=== PATIENT | female | born 1970 | race Caucasian/White ===

== ENCOUNTER → 2016-11-23 | Outpatient (CLI) | payer BC ==
[~2016-11-23] MED LIST: CHOL200010 PO; CYAN100020 PO; FERR1TAB23 PO; INSPMPNVLG; INTE44IN SC; LOW DOSE NALTREXONE PO; MAGN500C PO; THY/30 PO
== END | disposition home or self-care (01) ==
LOC: C.CPL 14:33
PROVIDERS: ATTEND Psychiatry & Neurology Neurology
DX: G35 Multiple sclerosis (principal)

== ENCOUNTER → 2017-02-12 | Outpatient (CLI) | payer BC ==
[~2017-02-12] MED LIST changes: +DOXY100C76 PO; +FING1CAP PO
[2017-02-12 10:53] LABS: ESTIMATED AVERAGE GLUCOSE 128 mg/dl; HA1C FLAG Normal (Normal)
== END | disposition home or self-care (01) ==
LOC: C.LAB1850 08:58
PROVIDERS: ATTEND Family Medicine
DX: E10.9 Type 1 diabetes mellitus without complications (principal); E03.9 Hypothyroidism, unspecified; Z79.4 Long term (current) use of insulin

== ENCOUNTER → 2017-05-10 | Outpatient (CLI) | payer BC ==
[~2017-05-10] MED LIST changes: -DOXY100C76 PO; -FING1CAP PO
--- NOTE | 2017-05-10 11:17 | DIAGNOSTIC IMAGING REPORT ---
TRANS VAG-FEMALE PELVIS HISTORY: Pain. Nausea. N92.0 Menorrhagia Menorrhagia. R/o anatomical etio. E X0D E ULTRA COMPARISON: None. FINDINGS: Uterus: Maximum dimension 9.5 cm. Diffuse heterogeneity of myometrial echogenicity suggesting fibroid involvement. Discrete fibroids, however not seen. Endometrial stripe: 3 mm Right ovary: 1.5 cm with normal vascular flow Left ovary: 2.5 cm maximum dimension with normal vascular flow Miscellaneous:No pelvic free fluid. IMPRESSION: Diffuse heterogeneity of the uterine myometrium suggesting developing fibroid-type architecture. No discrete fibroids. Otherwise normal study. The above report was generated using voice recognition software. It may contain grammatical, syntax or spelling errors. Electronically signed by: Elijah Richey M.D. 05/10/2017 11:16 AM Dictated Date/Time: 05/10/2017 11:14 AM
== END | disposition home or self-care (01) ==
LOC: C.ULTR 10:17
PROVIDERS: ATTEND Family Medicine
DX: N92.0 Excessive and frequent menstruation with regular cycle (principal)

== ENCOUNTER → 2017-05-16 | Outpatient (CLI) | payer BC | END | disposition home or self-care (01) | LOC: C.PATHSPEC 17:43 | PROVIDERS: ATTEND Obstetrics & Gynecology | DX: N92.0 Excessive and frequent menstruation with regular cycle (principal) ==

== ENCOUNTER → 2017-05-16 | Outpatient (CLI) | payer BC | END | disposition home or self-care (01) | LOC: C.PAPS 09:58 | PROVIDERS: ATTEND Obstetrics & Gynecology | DX: Z01.419 Encounter for gynecological examination (general) (routine) without abnormal findings (principal) ==

== ENCOUNTER → 2017-08-17 | Day surgery (SDC) | payer BC ==
[2017-08-09 09:03] VITALS: Ht 170.2 cm; Wt 62.3 kg
[~2017-08-17] VITALS: Ht 170.2 cm; Wt 62.3 kg
[~2017-08-17] MED LIST changes: +ACETAMINOPHEN 325 MG TAB PO PRN; +ARTIFICIAL TEARS OP OINT 3.5 GM TUBE ONE; +ATROPINE SULFATE 0.1 MG/ML 5ML SYR IV PRN; +BSS FLUSH ONE; +CEFAZOLIN 2000MG IV PUSH 10 ML IV SCH; -CYAN100020 PO; +DOXY100C76 PO; +ERYTHROMYCIN OP OINT 5 MG/GM 3.5 GM TUBE ONE; +EpHEDrine SULFATE INJ 50 MG/ML AMP IV PRN; +FENTANYL CITRATE INJ 50 MCG/1 ML 2 ML VIAL IV PRN; +FENTANYL CITRATE INJ 50 MCG/1 ML 2 ML VIAL ONE; -FERR1TAB23 PO; +FING1CAP PO; +GENTIAN VIOLET TOP SOLN DROP CHARGE ONE; -INTE44IN SC; +LACTATED RINGER'S 1000ML 1,000 ML IV SCH; +LIDOCAINE HCL 2% 2 ML VIAL (20MG/ML) ONE; +LIDOCAINE/EPINEPHRINE 1% INJ 50 ML VIAL ONE; -MAGN500C PO; +METOCLOPRAMIDE HCL INJ 5 MG/ML 2 ML VIAL IV PRN; +MIDAZOLAM HCL 1 MG/ML 2ML VIAL ONE; +ONDANSETRON INJ 2 MG/ML 2 ML VIAL IV PRN; +ONDANSETRON INJ 2 MG/ML 2 ML VIAL ONE; +OXYCODONE/ACETAMINOPHEN 5-325 TAB PO PRN; +POVIDONE-IODINE OP SOLN 30 ML BTL ONE; +PROMETHAZINE HCL INJ 6.25 MG in SODIUM CHLORIDE 0.9% 50ML 50 ML IV PRN; +PROPOFOL IV EMULSION 10 MG/ML 20 ML VIAL IV ONE; +SODIUM CHLORIDE 0.9% 1000ML 1,000 ML IV SCH
--- NOTE | 2017-08-17 07:03 | History & Physical Bridge - [place] ---
H&P Re-Evaluation Bridge Note: I have examined the patient, reviewed the History & Physical and in the interval since the performance of the History & Physical I have noted the following changes of clinical significance: No changes noted
--- NOTE | 2017-08-17 08:15 | [facility] Post Operative Brief Note ---
Immediate Operative Summary Operative Date Aug 17, 2017. Pre-Operative Diagnosis Bilateral dermatochalasis Post-Operative Diagnosis same Procedure(s) Performed Bilateral Noncosmetic Upper Blepharoplasty Surgeon Stop Attacher Surgeon(s) Brina MADISON Estimated Blood Loss 1ML Findings none Specimens None Anesthesia general Complication(s) None Disposition Recovery Room / PACU
--- NOTE | 2017-08-17 08:25 | Discharge Instructions ---
Discharge Instructions Date of Service Aug 17, 2017. Admission Reason for Admission: Bilateral Dermatochalasis Discharge Discharge Diagnosis / Problem: dermatochalasis Discharge Goals Goal(s): Decrease discomfort, Improve function Activity Recommendations Activity Limitations: per Instructions/Follow-up section ACTIVITY RECOMMENDATIONS: __Normal activities _x_No bending, lifting or straining __No driving __Driving allowed when you are off pain medications _x_Walking permitted __You should have help at home for ___ days DRESSINGS: _x_No dressings required __Keep dressings dry/in place until first office visit __Remove dressings ___ and leave dressings off _x_Apply ice _3__ days __Remove dressings and reapply garment _x_Apply antibiotic ointment to wounds 3-4 times/day for 10 days BATHING: __Keep dressings dry _x_Sponge bathing permitted _x_Showering permitted ON SUNDAY _x_No swimming, hot tubs or soaking in a tub MEDICATIONS: Resume previous medications unless instructed otherwise by your surgeon. _x_Do not use aspirin, Motrin, Advil or Ibuprofen as these may promote bleeding. Please use Tylenol. _x_Prescription(s) provided: pain medication and antibiotic ointment provided at your last office visit OTHER INSTRUCTIONS: __Record drain output 2-3 times per day SPECIAL CARE INSTRUCTIONS: * It is normal to have a mild fever after surgery. If your temperature is higher than 101.5 degrees F, please call the office at [phone]. * Constipation is a typical side effect of pain medication. An over-the- counter stool softener will help relieve this. * Leaking around surgical drains may occur and should not cause concern. Sometimes these drains become clogged. If this happens, remove the bulb and milk the clot out of the tube, then replace the bulb. * Drainage from wounds after liposuction is normal and should be expected. Garments will become soiled. You should protect furniture and bedding. This drainage should mostly subside within 2-3 days. Leave garments in place unless instructed to remove them. * If you have unusual drainage from a wound or are concerned you have an infection or have any questions or concerns, please call the office at [phone]. FOLLOW UP VISIT: If not already scheduled, please call the office, , when you return home after surgery to schedule an appointment to be seen in __5-7_ days. . Current Hospital Diet Patient's current hospital diet: Discharge Diet Recommended Diet: Regular Diet Procedures Procedures Performed: Bilateral Noncosmetic Upper Blepharoplasty Pending Studies Studies pending at discharge: no Medical Emergencies . Who to Call and When: Medical Emergencies: If at any time you feel your situation is an emergency, please call 911 immediately. . Non-Emergent Contact Non-Emergency issues call your: Primary Care Provider, Surgeon . "Provider Documentation" section prepared by Shalonda Rodgers. . VTE Core Measure Inpt VTE Proph given/why not?: SCD's [place] Drug Monitoring Program Search Results: no issues identified
[2017-08-17 09:42] VITALS: TEMP 37.1
--- NOTE | 2017-08-17 10:07 | Anesthesia Progress Nt - [facility] ---
Anesthesia Post Op Note Date & Time Aug 17, 2017 at 10:07 Vital Signs Pain Intensity: 2 Vital Signs Past 12 Hours Date Time Temp Pulse Resp B/P (MAP) Pulse Ox O2 Delivery O2 Flow Rate FiO2 08/17/17 10:03 79 18 146/87 (106) 99 Room Air 08/17/17 09:42 37.1 72 16 141/91 (108) 100 Room Air 08/17/17 09:12 86 16 98 08/17/17 09:12 84 16 08/17/17 09:07 94 23 08/17/17 09:07 94 23 95 08/17/17 09:06 37.2 89 16 142/84 98 Room Air 08/17/17 09:06 124/100 08/17/17 09:02 79 6 08/17/17 09:02 79 6 98 08/17/17 09:01 142/84 08/17/17 09:00 77 8 98 08/17/17 09:00 77 8 08/17/17 08:56 138/89 08/17/17 08:55 74 17 98 08/17/17 08:55 75 17 08/17/17 08:50 84 20 153/82 99 08/17/17 08:50 85 20 08/17/17 08:47 /91 08/17/17 08:45 82 16 08/17/17 08:45 83 16 99 08/17/17 08:41 134/85 08/17/17 08:40 88 16 99 08/17/17 08:40 88 16 08/17/17 08:37 143/78 08/17/17 08:35 91 23 08/17/17 08:35 89 23 100 08/17/17 08:33 118/93 08/17/17 08:30 87 15 08/17/17 08:30 86 15 100 08/17/17 08:26 154/98 08/17/17 08:25 88 12 08/17/17 08:25 87 12 100 08/17/17 08:21 137/88 08/17/17 08:20 36.4 90 12 137/88 100 Diffusion Mask 6 08/17/17 08:20 98 100 08/17/17 08:20 98 08/17/17 06:33 36.7 83 16 147/92 (110) 98 Room Air Notes Mental Status: alert / awake / arousable, participated in evaluation Pt Amnestic to Procedure: Yes Nausea / Vomiting: adequately controlled Pain: adequately controlled Airway Patency, RR, SpO2: stable & adequate BP & HR: stable & adequate Hydration State: stable & adequate Anesthetic Complications: no major complications apparent
[2017-08-17 10:17] VITALS: BP 144/83; PULSE 91; O2SAT 99
--- NOTE | 2017-08-17 13:49 | OPERATIVE REPORT ---
DATE OF OPERATION: 08/17/2017 PREOPERATIVE DIAGNOSIS: Bilateral upper eyelid dermatochalasis. POSTOPERATIVE DIAGNOSIS: Same. PROCEDURE: Bilateral noncosmetic upper blepharoplasty. SURGEON: Dr. Bozena Collins. BILINGUAL ACCOUNT MANAGER: Shalonda Rodgers PA-C ANESTHESIA: General. COMPLICATIONS: None. INDICATION FOR THE PROCEDURE: The patient is a 47-year-old female who presented to my office with concerns of visual field obstruction related to excess skin of her upper eyelids. After discussion and obtaining visual field testing, we felt that she will be a good candidate for bilateral noncosmetic upper blepharoplasty. BRIEF DESCRIPTION OF THE PROCEDURE: Risks, benefits, and alternatives of the procedure were explained to the patient, who agreed and signed consent. She was identified and marked in the preoperative holding area. She was brought to the operating room, where she was positioned supine and placed under anesthesia without incident. Surgical site was prepped and draped sterilely. A time-out procedure was performed. I began on the left side. Markings were applied and the incisions were marked along the supratarsal crease at 8 mm in the mid pupillary line along the anatomic crease. Incision was carried medially, taking care not to cross the medial punctum. The incision was marked 1 cm below the lateral brow and carried in a trapezoidal fashion out into the lateral canthal area. This represented an area of skin to be removed of 1.5 cm. Corneal protectors were placed. 1% lidocaine with epinephrine was used to anesthetize the planned incisions. A 15 blade scalpel was used to make the incisions. Skin was carefully dissected off the underlying orbicularis musculature using electrocautery. This was performed in the lateral to medial direction. Once the skin was removed, the medial fat compartment was incised with return of significant amount of herniated fat. This was excised with electrocautery, taking only is to be herniated through the incision. Following this, hemostasis was achieved with electrocautery. 6-0 nylon interrupted sutures were used to close the incision, taking a bite of orbicularis musculature with each suture. An identical procedure was performed on the right side and was marked with symmetric markings. The medial fat compartment was opened as well. Wound was closed in similar fashion. Antibiotic ointment was applied. Corneal protectors were removed. The eyes were irrigated with balanced salt solution. The patient was awakened and transferred to recovery room in satisfactory condition. I attest to the content of the Intraoperative Record and any orders documented therein. Any exception s are noted below.
== END | disposition home or self-care (01) ==
LOC: X.SURG 06:16
PROVIDERS: ATTEND Plastic Surgery
DX: H02.831 Dermatochalasis of right upper eyelid (principal); H02.834 Dermatochalasis of left upper eyelid; E11.9 Type 2 diabetes mellitus without complications; E03.9 Hypothyroidism, unspecified; G35 Multiple sclerosis; Z96.41 Presence of insulin pump (external) (internal); Z79.4 Long term (current) use of insulin; Z98.890 Other specified postprocedural states; Z82.49 Family history of ischemic heart disease and other diseases of the circulatory system; Z79.899 Other long term (current) drug therapy

== ENCOUNTER 2022-07-08 17:18 | Observation (INO) ==
[2022-07-08] MEDS ORDERED: ONDANSETRON INJ 2 MG/ML 2 ML VIAL IV STA (17:47)
--- NOTE | 2022-07-08 17:52 | Emergency Department Note ---
Impression & Plan Brain TIA, Acute hypokalemia, Hyperglycemia ED Provider Note NAME: JACQUELINE GALLEGOS AGE: 52 SEX: F : 1970 ARRIVES VIA: Walk-In INFORMANT: Patient ED PROVIDER(S): Myron Weller DO CHIEF COMPLAINT: Expressive aphasia HPI: Patient is a 52-year-old female who presents to the ER from around 430 to 5:00 she was sitting at the table. She started having headache and trouble getting her words out. She went to the bathroom when she came back this had resolved. She still has a headache in the middle of her head. About a 6 out of 10. She has a history of MS. No new weakness or numbness in her arms or legs. No change in vision. She was little unsteady with her gait but this is unchanged from her normal gait. No chest pain or shortness of breath. No dysuria, urgency, or frequency. No belly pain. No other exacerbating or remitting factors. ROS: See above HPI for pertinent positives & negatives. A total of 10 systems r eviewed and were otherwise negative. PAST MEDICAL HISTORY:See Below PAST SURGICAL HISTORY:See Below FAMILY HISTORY:See Below SOCIAL HISTORY:See Below HOME MEDICATIONS:See Below ALLERGIES:See Below VITALS:See Below PHYSICAL EXAMINATION: GENERAL: Sitting up in bed, alert, well appearing, well nourished, no distress, non-toxic EYE EXAM: normal conjunctiva. PERRL and EOM's intact. OROPHARYNX: no exudate, no erythema, lips, buccal mucosa, and tongue normal and mucous membranes are moist NECK: supple, no nuchal rigidity, no adenopathy, non-tender LUNGS: Clear to auscultation. Normal chest wall mechanics HEART: no murmurs, S1 normal and S2 normal ABDOMEN: abdomen soft, non-tender, normo-active bowel sounds, no masses, no r ebound or guarding. BACK: Back is symmetrical on inspection and there is no deformity, no midline t enderness, no CVA tenderness. SKIN: no rashes and no bruising UPPER EXTREMITIES: upper extremities are grossly normal. LOWER EXTREMITIES: No pitting edema. NEURO EXAM: Normal sensorium, cranial nerves II-XII intact, normal speech, no weakness of arms, no weakness of legs. No drift. Finger to nose intact. Gross sensation intact. [id number] intact. Rapid alternating movements of upper extremities intact MEDICAL DECISION MAKING: Patient is a 52-year-old female who presents the ER for slurred speech/loss of speech. IV was established blood work is obtained. Labs show a leukopenia of 3.6. INR was unremarkable. BMP with elevated glucose 148. LFTs bilirubin was unremarkable. Troponin was negative. COVID was negative. CT angio of the head and neck was negative. Chest x-ray was unremarkable. Patient was given IV fluids and aspirin. Discussed with [facility] who recommend admission MRI, echo and Holter. Patient family were updated at bedside. Discussed the hospitalist for further evaluation Dr. Daniella Ambrosio. Triage Nursing notes reviewed. Limited review of prior medical records performed Vital Signs: reviewed and remarkable for HTN Differential diagnosis: Differential Diagnosis includes but is not limited to ischemic Stroke, hemorrhagic stroke, bells palsy, mass, neoplasm, migraine headache, seizure, subarachnoid hemorrhage, TIA, and transient global amnesia. ER treatment provided: See below Diagnostics interpreted by me: ECG: Sinus rhythm rate 83 Normal axis No PVCs T wave inversion in the septal leads QTC 432 Cardiac Monitoring: An order was placed for continuous cardiac monitoring. The monitor shows a rate of 80 with sinusrhythm. Laboratory studies: As stated above and show below. Imaging studies: CT angios of the head and neck were negative Consultation(s): Discussed with Daniella Ambrosio for further evaluation Discussed with [facility] as described above Procedures: none Critical Care: None Past Med/Surg History Medical History Celiac disease Diabetes type 1, controlled Dyslipidemia Elham's thyroiditis Hypertension MS (multiple sclerosis) Surgical History H/O blepharoplasty H/O oral surgery S/P dilation and curettage Family History Unknown Diabetes Mother Anxiety Hypertension Depression Thyroid disease Father Alzheimer disease Social History (Updated 07/08/22 @ 22:39 by Marialuisa Ambrosio DO) Smoking Status: Never smoker Hx Alcohol Use: No Hx Substance Use: No Preferred Language: Palauan Feels Safe at Home: Yes Allergies Allergies Allergy/AdvReac Type Severity Reaction Status Date / Time glatiramer (copolymer 1) Allergy Severe BODY Verified 07/08/22 20:36 SPASMS TO A POS DIAPHORESIS HEARTRACING FLUSHING Home Meds Home Medications Medication Instructions Recorded Confirmed levonorgestrel 20 mcg/24 hours (8 20 mcg intrauterine CONTINOUS 04/25/19 07/08/22 yrs) 52 mg intrauterine device cholecalciferol (vitamin D3) 50 2,000 units PO DAILY #30 tabs 05/21/19 07/08/22 mcg (2,000 unit) tablet fingolimod 0.5 mg capsule 0.5 mg PO DAILY 06/14/22 07/08/22 thyroid (pork) 60 mg tablet 60 mg PO DAILY 07/08/22 07/08/22 Previous Rx's Medication Instructions Recorded Accu-Chek Fastclix Lancet Drum #510 ea 03/08/21 (lancets) Contour Next Test Strips (blood #600 ea 03/08/21 sugar diagnostic) insulin aspart U-100 100 unit/mL 40 unit (0.4 mL) continuous 07/22/21 subcutaneous solution (Novolog subcutaneous infusion DAILY 90 U-100 Insulin aspart) days #36 mL lisinopril 10 mg tablet 10 mg PO DAILY #90 tabs 06/14/22 thyroid (pork) 15 mg tablet 15 mg PO DAILY #90 tabs 06/14/22 Results & Data (ED) Vital Signs Vital Signs - 24 hr 07/08/22 17:28 07/08/22 19:00 Temperature 36.4 C L Temperature Source Temporal Artery Scan Pulse Rate 85 Pulse Rate [Apical] 75 Pulse Rhythm Regular Pulse Rhythm [Apical] Regular Pulse Strength Normal Pulse Strength [Apical] Normal Respiratory Rate 20 18 Respiratory Effort / Characteristics Non-Labored Spontaneous Non-Labored Respiratory Depth Normal Normal Respiratory Pattern Regular Regular Blood Pressure 156/74 H Blood Pressure [Right Arm] 145/73 H Blood Pressure Mean 101 Blood Pressure Mean [Right Arm] 97 Blood Pressure Position Sitting Pulse Oximetry 97 100 Oxygen Delivery Method Room Air Sepsis Recent Fever Within 48 Hours No Sepsis New/Unexplained Change in Mental Status No Sepsis Action Taken by Nursing No Action Required Laboratory Data Result diagrams: 07/08/22 18:31 07/08/22 18:31 Lab Results 07/08/22 07/08/22 07/08/22 Range/Units 17:39 18:31 18:31 WBC 3.66 L (4.8-10.8) K/ul RBC 4.43 (3.93-5.22) M/uL Hgb 13.5 (12.0-16.0) g/dl Hct 41.4 (34.1-44.9) % MCV 93.5 (80.0-100.0) fL MCH 30.5 (25.0-34.0) pg MCHC 32.6 (32.0-36.0) g/dL RDW Std Deviation 46.6 H (36.4-46.3) fL RDW Coeff of Seven 13.7 (11.5-14.5) % Plt Count 244 (130-400) K/uL MPV 9.9 (9.4-12.3) fL Immature Gran % (Auto) 0.3 % Neut % (Auto) 79.8 % Lymph % (Auto) 5.7 % [place] % (Auto) 12.8 % Eos % (Auto) 1.1 % Baso % (Auto) 0.3 % Neut # (Auto) 2.92 (1.4-6.5) K/uL Lymph # (Auto) 0.21 L (1.2-3.4) K/uL [place] # (Auto) 0.47 (0.24-0.82) K/uL Eos # (Auto) 0.04 (0-0.50) K/uL Baso # (Auto) 0.01 (0-0.2) K/uL Immature Gran # (Auto) 0.01 (0.00-0.02) K/uL PT 10.4 (9.0-12.0) Seconds INR 1.0 (0.9-1.1) APTT 26.2 (21.0-31.0) Seconds PTT Ratio 1.0 Sodium (136-145) mmol/L Potassium (3.5-5.1) mmol/L Chloride (98-107) mmol/L Carbon Dioxide (21-32) mmol/L Anion Gap (3-11) BUN (6-23) mg/dl Creatinine (0.6-1.2) mg/dl Est Cr Clr Drug Dosing ml/min Est GFR ( Amer) ml/min Est GFR (Non-Af Amer) ml/min BUN/Creatinine Ratio (10-20) Glucose (70-99(Fasting)) mg/dl POC Glucose 121 H (70-99) mg/dl Calcium (8.5-10.1) mg/dl Magnesium (1.7-2.4) mg/dl Total Bilirubin (0.2-1.0) mg/dl AST (13-39) U/L ALT (7-52) U/L Alkaline Phosphatase (34-104) U/L Troponin I High Sens (0-14) pg/ml Total Protein (6.0-8.3) gm/dl Albumin (3.4-5.0) gm/dl Globulin (2.5-4.0) gm/dl Albumin/Globulin Ratio (0.9-2) 07/08/22 Range/Units 18:31 WBC (4.8-10.8) K/ul RBC (3.93-5.22) M/uL Hgb (12.0-16.0) g/dl Hct (34.1-44.9) % MCV (80.0-100.0) fL MCH (25.0-34.0) pg MCHC (32.0-36.0) g/dL RDW Std Deviation (36.4-46.3) fL RDW Coeff of Seven (11.5-14.5) % Plt Count (130-400) K/uL MPV (9.4-12.3) fL Immature Gran % (Auto) % Neut % (Auto) % Lymph % (Auto) % [place] % (Auto) % Eos % (Auto) % Baso % (Auto) % Neut # (Auto) (1.4-6.5) K/uL Lymph # (Auto) (1.2-3.4) K/uL [place] # (Auto) (0.24-0.82) K/uL Eos # (Auto) (0-0.50) K/uL Baso # (Auto) (0-0.2) K/uL Immature Gran # (Auto) (0.00-0.02) K/uL PT (9.0-12.0) Seconds INR (0.9-1.1) APTT (21.0-31.0) Seconds PTT Ratio Sodium 139 (136-145) mmol/L Potassium 3.5 (3.5-5.1) mmol/L Chloride 104 (98-107) mmol/L Carbon Dioxide 32 (21-32) mmol/L Anion Gap 3 (3-11) BUN 15 (6-23) mg/dl Creatinine 0.79 (0.6-1.2) mg/dl Est Cr Clr Drug Dosing 76.2 ml/min Est GFR ( Amer) 98.4 ml/min Est GFR (Non-Af Amer) 84.9 ml/min BUN/Creatinine Ratio 19.0 (10-20) Glucose 102 H (70-99(Fasting)) mg/dl POC Glucose (70-99) mg/dl Calcium 9.3 (8.5-10.1) mg/dl Magnesium 2.3 (1.7-2.4) mg/dl Total Bilirubin 0.4 (0.2-1.0) mg/dl AST 17 (13-39) U/L ALT 26 (7-52) U/L Alkaline Phosphatase 94 (34-104) U/L Troponin I High Sens 2.8 (0-14) pg/ml Total Protein 6.8 (6.0-8.3) gm/dl Albumin 4.3 (3.4-5.0) gm/dl Globulin 2.5 (2.5-4.0) gm/dl Albumin/Globulin Ratio 1.7 (0.9-2) Administered Medications Discontinued Medications Aspirin (Aspirin Chew 324 Mg) 324 mg PO NOW STA Stop: 07/08/22 19:58 Last Admin: 07/08/22 20:04 Dose: 324 mg Documented By: NIKHIL Sodium Chloride (Nss 1000ml) 1,000 mls @ 999 mls/hr IV .Q1H1M ONE Stop: 07/08/22 18:53 Last Infusion: 07/08/22 19:42 Dose: 0 mls/hr Documented By: OAJaxson Admin: 07/08/22 18:39 Dose: 999 mls/hr Documented By: JOSE Ioversol (Optiray 320 500ml) 116 ml IV ONCE ONE Stop: 07/08/22 18:05 Last Admin: 07/08/22 18:05 Dose: 116 ml Documented By: YAMILKA Ondansetron HCl (Ondansetron Inj 2 Mg/Ml 2 Ml Vial) 4 mg IV NOW STA Stop: 07/08/22 17:48 Last Admin: 07/08/22 18:39 Dose: Not Given Documented By: [facility] Imaging Data Radiologist's Impression: Chest X-Ray 07/08/22 17:47 XR chest 1V portable CLINICAL HISTORY: ? tia TECHNIQUE: Single frontal radiograph of the chest was obtained. Comparison: Comparison is made to chest and abdomen radiographs 07/15/2014 FINDINGS: No lines and tubes are seen. The cardiomediastinal silhouette is normal. The lungs are clear. No evidence of pleural effusion or pneumothorax. IMPRESSION: No acute chest disease. ACT 112: Negative or not required by law. Electronically signed by: Bon Osman M.D. 07/08/2022 6:[address] 07/08/22 17:47 CT angio neck with con, CT head/brain wo con, CT angio head w con CLINICAL HISTORY: Stroke Like Symptoms TECHNIQUE: Contiguous axial CT images of the head were acquired from the base of the skull to the vertex without intravenous contrast administration. CT angiography of the head and neck was performed following intravenous administration of iodinated contrast. Coronal and sagittal MIPS were obtained from the axial data set and were submitted for review. Automated dose lowering techniques and/or adjustment according to patient size were utilized for this examination. All measurements were calculated based on NASCET criteria. CT DOSE: 1056.71 mGy.cm Comparison: Comparison is made to MRI brain 08/24/2011 FINDINGS: CT head: There is no acute intracranial hemorrhage or evidence of acute territorial infarction. No shift of the midline structures, mass effect, or extra-axial abnormalities are shown. Lungs and soft tissues are unremarkable. CTA Neck: A 3 vessel aortic arch is shown. There is no significant atherosclerotic plaque in the aortic arch or the origins of the innominate, left common carotid, and left subclavian arteries. The common carotid, external carotid, cervical segments of the internal carotid arteries, and the cervical segments of the vertebral arteries are patent without hemodynamically significant stenosis. The left vertebral artery is dominant. CTA Head: The anterior and posterior cerebral circulations are patent. No hemodynamically significant stenosis, aneurysm, dissection, or arteriovenous malformation is shown. Atherosclerotic disease is noted. IMPRESSION: 1. No acute intracranial hemorrhage, evidence of acute territorial infarction, or other acute intracranial disease process. 2. No occlusion, hemodynamically significant stenosis, or dissection in the major cervical arteries. 3. No occlusion, hemodynamically significant stenosis, aneurysm, dissection, or arteriovenous malformation in the major intracranial arteries. Assessment of stenosis of the internal carotid arteries is based on NASCET criteria. ACT 112: Negative or not required by law. Electronically signed by: Bon Osman M.D. 07/08/2022 7:13 PM Head CTA 07/08/22 17:47 CT angio neck with con, CT head/brain wo con, CT angio head w con CLINICAL HISTORY: Stroke Like Symptoms TECHNIQUE: Contiguous axial CT images of the head were acquired from the base of the skull to the vertex without intravenous contrast administration. CT angiography of the head and neck was performed following intravenous administration of iodinated contrast. Coronal and sagittal MIPS were obtained from the axial data set and were submitted for review. Automated dose lowering techniques and/or adjustment according to patient size were utilized for this examination. All measurements were calculated based on NASCET criteria. CT DOSE: 1056.71 mGy.cm Comparison: Comparison is made to MRI brain 08/24/2011 FINDINGS: CT head: There is no acute intracranial hemorrhage or evidence of acute territorial infarction. No shift of the midline structures, mass effect, or extra-axial abnormalities are shown. Lungs and soft tissues are unremarkable. CTA Neck: A 3 vessel aortic arch is shown. There is no significant atherosclerotic plaque in the aortic arch or the origins of the innominate, left common carotid, and left subclavian arteries. The common carotid, external carotid, cervical segments of the internal carotid arteries, and the cervical segments of the vertebral arteries are patent without hemodynamically significant stenosis. The left vertebral artery is dominant. CTA Head: The anterior and posterior cerebral circulations are patent. No hemodynamically significant stenosis, aneurysm, dissection, or arteriovenous malformation is shown. Atherosclerotic disease is noted. IMPRESSION: 1. No acute intracranial hemorrhage, evidence of acute territorial infarction, or other acute intracranial disease process. 2. No occlusion, hemodynamically significant stenosis, or dissection in the major cervical arteries. 3. No occlusion, hemodynamically significant stenosis, aneurysm, dissection, or arteriovenous malformation in the major intracranial arteries. Assessment of stenosis of the internal carotid arteries is based on NASCET criteria. ACT 112: Negative or not required by law. Electronically signed by: Bon Osman M.D. 07/08/2022 7:13 PM Neck CTA 07/08/22 17:47 CT angio neck with con, CT head/brain wo con, CT angio head w con CLINICAL HISTORY: Stroke Like Symptoms TECHNIQUE: Contiguous axial CT images of the head were acquired from the base of the skull to the vertex without intravenous contrast administration. CT an giography of the head and neck was performed following intravenous administration of iodinated contrast. Coronal and sagittal MIPS were obtained from the axial data set and were submitted for review. Automated dose lowering techniques and/or adjustment according to patient size were utilized for this examination. All measurements were calculated based on NASCET criteria. CT DOSE: 1056.71 mGy.cm Comparison: Comparison is made to MRI brain 08/24/2011 FINDINGS: CT head: There is no acute intracranial hemorrhage or evidence of acute territorial infarction. No shift of the midline structures, mass effect, or extra-axial abnormalities are shown. Lungs and soft tissues are unremarkable. CTA Neck: A 3 vessel aortic arch is shown. There is no significant atherosclerotic plaque in the aortic arch or the origins of the innominate, left common carotid, and left subclavian arteries. The common carotid, external carotid, cervical segments of the internal carotid arteries, and the cervical segments of the vertebral arteries are patent without hemodynamically significant stenosis. The left vertebral artery is dominant. CTA Head: The anterior and posterior cerebral circulations are patent. No hemodynamically significant stenosis, aneurysm, dissection, or arteriovenous malformation is shown. Atherosclerotic disease is noted. IMPRESSION: 1. No acute intracranial hemorrhage, evidence of acute territorial infarction, or other acute intracranial disease process. 2. No occlusion, hemodynamically significant stenosis, or dissection in the major cervical arteries. 3. No occlusion, hemodynamically significant stenosis, aneurysm, dissection, or arteriovenous malformation in the major intracranial arteries. Assessment of stenosis of the internal carotid arteries is based on NASCET criteria. ACT 112: Negative or not required by law. Electronically signed by: Bon Osman M.D. 07/08/2022 7:13 PM Discharge Plan Visit Data Chief Complaint: Neuro Symptoms/Deficit Stated Complaint: SLURRED SPEECH, CONFUSION, HEADACHE, DISORIENTED ED Provider: Myron Weller Discharge Problem: Brain TIA, Acute hypokalemia, Hyperglycemia Patient Disposition: Admitted As Inpatient Discharge Instructions Interventions: ED Discharge Assessment Last Done: 07/08/22 22:48
[2022-07-08] MEDS ORDERED: SODIUM CHLORIDE 0.9% 1000ML 1,000 ML IV ONE (17:53)
[2022-07-08] MEDS ORDERED: OPTIRAY 320 500ml IV ONE (18:04)
[2022-07-08 18:56] LABS: Basophils # (auto) 0.01 K/uL (0-0.2); Basophils % (auto) 0.3 %; Eosinophils # (auto) 0.04 K/uL (0-0.50); Eosinophils % (auto) 1.1 %; Hematocrit (blood only) 41.4 % (34.1-44.9); Hemoglobin 13.5 g/dl (12.0-16.0); Immature Granulocytes # (auto) 0.01 K/uL (0.00-0.02); Immature Granulocytes % (auto) 0.3 %; Lymphocytes # (auto) 0.21 K/uL (1.2-3.4); Lymphocytes % (auto) 5.7 %; Mean Corpuscular Hemoglobin 30.5 pg (25.0-34.0); Mean Corpuscular Hgb Conc 32.6 g/dL (32.0-36.0); Mean Corpuscular Volume 93.5 fL (80.0-100.0); Mean Platelet Volume 9.9 fL (9.4-12.3); Monocytes # (auto) 0.47 K/uL (0.24-0.82); Monocytes % (auto) 12.8 %; Neutrophils # (auto) 2.92 K/uL (1.4-6.5); Neutrophils % (auto) 79.8 %; Platelet Count 244 K/uL (130-400); RDW Coefficient of Variation 13.7 % (11.5-14.5); RDW Standard Deviation 46.6 fL (36.4-46.3); Red Blood Count 4.43 M/uL (3.93-5.22); White Blood Count 3.66 K/ul (4.8-10.8)
--- NOTE | 2022-07-08 18:59 | XRay Report ---
XR chest 1V portable CLINICAL HISTORY: ? tia TECHNIQUE: Single frontal radiograph of the chest was obtained. Comparison: Comparison is made to chest and abdomen radiographs 07/15/2014 FINDINGS: No lines and tubes are seen. The cardiomediastinal silhouette is normal. The lungs are clear. No evid ence of pleural effusion or pneumothorax. IMPRESSION: No acute chest disease. ACT 112: Negative or not required by law. Electronically signed by: Bon Osman M.D. 07/08/2022 6:58 PM
[2022-07-08 19:08] LABS: Partial Thromboplastin Time 26.2 Seconds (21.0-31.0); Prothrombin Time 10.4 Seconds (9.0-12.0)
--- NOTE | 2022-07-08 19:16 | CT Scan Report ---
CT angio neck with con, CT head/brain wo con, CT angio head w con CLINICAL HISTORY: Stroke Like Symptoms TECHNIQUE: Contiguous axial CT images of the head were acquired from the base of the skull to the [place] without intravenous contrast administration. CT angiography of the head and neck was performed f ollowing intravenous administration of iodinated contrast. Coronal and sagittal MIPS were obtained fr om the axial data set and were submitted for review. Automated dose lowering techniques and/or adjus tment according to patient size were utilized for this examination. All measurements were calculated based on NASCET criteria. CT DOSE: 1056.71 mGy.cm Comparison: Comparison is made to MRI brain 08/24/2011 FINDINGS: CT head: There is no acute intracranial hemorrhage or evidence of acute territorial infarction. No sh ift of the midline structures, mass effect, or extra-axial abnormalities are shown. Lungs and soft tissues are unremarkable. CTA Neck: A 3 vessel aortic arch is shown. There is no significant atherosclerotic plaque in the aor tic arch or the origins of the innominate, left common carotid, and left subclavian arteries. The c ommon carotid, external carotid, cervical segments of the internal carotid arteries, and the cervical segments of the vertebral arteries are patent without hemodynamically significant stenosis. The left vertebral artery is dominant. CTA Head: The anterior and posterior cerebral circulations are patent. No hemodynamically significan t stenosis, aneurysm, dissection, or arteriovenous malformation is shown. Atherosclerotic disease is noted. IMPRESSION: 1. No acute intracranial hemorrhage, evidence of acute territorial infarction, or other acute intrac ranial disease process. 2. No occlusion, hemodynamically significant stenosis, or dissection in the major cervical arteries. 3. No occlusion, hemodynamically significant stenosis, aneurysm, dissection, or arteriovenous malfor mation in the major intracranial arteries. Assessment of stenosis of the internal carotid arteries is based on NASCET criteria. ACT 112: Negative or not required by law. Electronically signed by: Bon Osman M.D. 07/08/2022 7:13 PM
[2022-07-08 19:18] LABS: Albumin Globulin Ratio 1.7 (0.9-2); Albumin Level 4.3 gm/dl (3.4-5.0); Bilirubin,Total 0.4 mg/dl (0.2-1.0); Calcium 9.3 mg/dl (8.5-10.1); Creatinine Clr Calc Pharmacy 76.2 ml/min; Est GFR (African American) 98.4 ml/min; Est GFR (Non-African American) 84.9 ml/min; Globulin 2.5 gm/dl (2.5-4.0); Magnesium 2.3 mg/dl (1.7-2.4); Potassium 3.5 mmol/L (3.5-5.1); Total Protein 6.8 gm/dl (6.0-8.3)
[2022-07-08 19:22] LABS: Troponin I High Sensitivity 2.8 pg/ml (0-14)
[2022-07-08] MEDS ORDERED: ASPIRIN CHEW 324 MG PO STA (19:57)
--- NOTE | 2022-07-08 20:48 | History & Physical Report ---
Date of Service July 08, 2022 Assessment & Plan (1) Dysarthria: Plan: 52yo female with history of relapsing/remitting MS, well controlled on fingolimod (GILENYA), Type I DM with insulin pump in place and HTN presenting with brief episode of dysarthria and visual disturbance. Symptoms have resolved. Still with dull frontal headache, otherwise no complaints. Workup thus far is unremarkable to include CT Head and CTA Head and neck Neurological exam is unremarkable Differential to include TIA/CVA, complex migraine, less likely secondary to flare of MS -Observation to medical with telemetry -Check MRI brain -Check 2D echo -Check Lipid panel -Lasat [id number]=7.9 on 06/14/22 -ASA 81mg po daily and Plavix 75mg daily for now -Patient has be recommended a statin by Endocrine - preferred to hold off at that time. Should be started on statin on discharge given current episode (2) Multiple sclerosis: Plan: Relapsing/remitting - overall very well controlled on GILENYA. Patient follows with Neurology. Has not had acute flare for years - they are considering taking her of DMARD medications. Doubt that tonight's event was secondary to MS. Symptoms have now resolved -Continue Fingolimod. Patient's daughter is bringing in her medication (3) Diabetes type 1, controlled: Plan: Overall well controlled with insulin pump in place. Last [id number]=7.9 on 06/14/22. Patient has no difficulty with her insulin pump -Continue insulin pump -Patient may manage her own (4) Hypertension: Plan: Chronic. Mildly elevated at present at 145/73 -Continue Lisinopril 10mg po daily (5) Hypothyroidism: Plan: Chronic. TSH is low at 0.34. Patient follows with Endocrinology - last seen 06/14/22 -Continue pork thyroid 75mcg daily History of Present Illness Chief Complaint: headache, slurred speech Primary Care Provider: Milana Britton MD Liliana Olmos is a 52yo female with Type I DM, HTN and HLP as well as relapsing/remitting MS well controlled presenting with acute episode of headache and speech disturbance. Patient was sitting in front of a computer with her [id number] looking for vacation rentals around 16:00 when she had an acute episode of garbled speech. She saw a visual deficit in her right eye - she describes as a "pixilated shape" that moved across her field of vision. She then developed sharp pain in her head between her eyes. She got up to go to the bathroom and was able to walk without difficulty. She then spoke with her daughter and her speech was clear. She continues to have a dull frontal headache. Denies facial droop, focal numbness/weakness, imbalance or falls. She has no nausea, vomiting, fever, chills, neck pain. She does not get headaches routinely. Denies photophobia/phonophobia No additional complaints at this time Patient did say that she has seen the "pixilated shape" before. She spoke with her Engineering Design Supervisor about it and was told that it was from eye fatigue and strain. Code Stroke was called by the ER upon patient's arrival. She is afebrile, mildly hypertensive otherwise stable. NAD ER Course: Imaging performed to include CT Head and CTA Head and Neck that were NEGATIVE for acute process ASA 324mg Allergies Allergy/AdvReac Type Severity Reaction Status Date / Time glatiramer (copolymer 1) Allergy Severe BODY Verified 07/08/22 20:36 SPASMS TO A POS DIAPHORESIS HEARTRACING FLUSHING Home Medications Medication Instructions Recorded Confirmed Type levonorgestrel 20 mcg/24 hours (8 20 mcg intrauterine CONTINOUS 04/25/19 07/08/22 History yrs) 52 mg intrauterine device cholecalciferol (vitamin D3) 50 2,000 units PO DAILY #30 tabs 05/21/19 07/08/22 History mcg (2,000 unit) tablet Accu-Chek Fastclix Lancet Drum #510 ea 03/08/21 06/14/22 Rx (lancets) Contour Next Test Strips (blood #600 ea 03/08/21 06/14/22 Rx sugar diagnostic) insulin aspart U-100 100 unit/mL 40 unit (0.4 mL) continuous 07/22/21 07/08/22 Rx subcutaneous solution (Novolog subcutaneous infusion DAILY 90 U-100 Insulin aspart) days #36 mL fingolimod 0.5 mg capsule 0.5 mg PO DAILY 06/14/22 07/08/22 History lisinopril 10 mg tablet 10 mg PO DAILY #90 tabs 06/14/22 07/08/22 Rx thyroid (pork) 15 mg tablet 15 mg PO DAILY #90 tabs 06/14/22 07/08/22 Rx thyroid (pork) 60 mg tablet 60 mg PO DAILY 07/08/22 07/08/22 History Past Med/Surg History Medical History Celiac disease Diabetes type 1, controlled Dyslipidemia Elham's thyroiditis Hypertension MS (multiple sclerosis) Surgical History H/O blepharoplasty H/O oral surgery S/P dilation and curettage Family History Unknown Diabetes Mother Anxiety Hypertension Depression Thyroid disease Father Alzheimer disease Social History (Updated 07/08/22 @ 22:39 by Marialuisa Ambrosio DO) Smoking Status: Never smoker Hx Alcohol Use: No Hx Substance Use: No Preferred Language: Amharic Feels Safe at Home: Yes Review of Systems Review of Systems: All systems reviewed & are unremarkable except as noted in HPI & below Physical Exam Physical Exam: General: patient resting comfortably, NAD, non-toxic in appearance, AA&O x 4 Skin: warm, dry, intact, no rashes or lesions HEENT: NC/AT, PERRL, EOMI, anicteric sclera, conjunctiva without injection, external ear normal to inspection and nontender, nares patent, moist mucus membranes, dentition intact, no oropharyngeal lesions, neck supple, trachea midline, no LAD, no thyromegaly, no JVD Heart: +S1/S2, regular, no m/r/g Lungs: equal air entry bilaterally, no rales/rhonchi/wheezes Abd: +BS, soft, NT/ND, no masses/organomegaly/ascites Ext: warm, 2+ pulses in UE/LE bilaterally, no clubbing/cyanosis or edema Neuro: nonfocal, patient AA&O x 4, speech intact, no facial droop, moving all extremities on command with equal strength 5/5, CN II - XII intact, sensation to light touch intact Results & Data Results & Data ([facility]) Vital Signs (Past 12 Hours) Vital Signs Temp Pulse Pulse Resp BP BP Pulse Ox 07/08/22 19:00 75 18 145/73 H 100 07/08/22 17:28 36.4 C L 85 20 156/74 H 97 O2 Del Method 07/08/22 19:00 07/08/22 17:28 Room Air Laboratory Results Laboratory Results WBC 3.66 K/ul (4.8-10.8) L 07/08/22 18: RBC 4.43 M/uL (3.93-5.22) 07/08/22 18: Hgb 13.5 g/dl (12.0-16.0) 07/08/22 18: Hct 41.4 % (34.1-44.9) 07/08/22 18: MCV 93.5 fL (80.0-100.0) 07/08/22 18: MCH 30.5 pg (25.0-34.0) 07/08/22 18: MCHC 32.6 g/dL (32.0-36.0) 07/08/22 18: RDW Std Deviation 46.6 fL (36.4-46.3) H 07/08/22 18: RDW Coeff of Seven 13.7 % (11.5-14.5) 07/08/22 18: Plt Count 244 K/uL (130-400) 07/08/22 18: MPV 9.9 fL (9.4-12.3) 07/08/22 18: Immature Gran % (Auto) 0.3 % 07/08/22 18: Neut % (Auto) 79.8 % 07/08/22 18: Lymph % (Auto) 5.7 % 07/08/22 18: Rowan % (Auto) 12.8 % 07/08/22 18: Eos % (Auto) 1.1 % 07/08/22 18: Baso % (Auto) 0.3 % 07/08/22 18: Neut # (Auto) 2.92 K/uL (1.4-6.5) 07/08/22 18: Lymph # (Auto) 0.21 K/uL (1.2-3.4) L 07/08/22 18: Rowan # (Auto) 0.47 K/uL (0.24-0.82) 07/08/22 18: Eos # (Auto) 0.04 K/uL (0-0.50) 07/08/22 18:31 Baso # (Auto) 0.01 K/uL (0-0.2) 07/08/22 18:31 Immature Gran # (Auto) 0.01 K/uL (0.00-0.02) 07/08/22 18:31 PT 10.4 Seconds (9.0-12.0) 07/08/22 18:31 INR 1.0 (0.9-1.1) 07/08/22 18:31 APTT 26.2 Seconds (21.0-31.0) 07/08/22 18: PTT Ratio 1.0 07/08/22 18:31 Sodium 139 mmol/L (136-145) 07/08/22 18:31 Potassium 3.5 mmol/L (3.5-5.1) 07/08/22 18:31 Chloride 104 mmol/L (98-107) 07/08/22 18:31 Carbon Dioxide 32 mmol/L (21-32) 07/08/22 18:31 Anion Gap 3 (3-11) 07/08/22 18:31 BUN 15 mg/dl (6-23) 07/08/22 18:31 Creatinine 0.79 mg/dl (0.6-1.2) 07/08/22 18:31 Est Cr Clr Drug Dosing 76.2 ml/min 07/08/22 18:31 Est GFR ( Amer) 98.4 ml/min 07/08/22 18:31 Est GFR (Non-Af Amer) 84.9 ml/min 07/08/22 18:31 BUN/Creatinine Ratio 19.0 (10-20) 07/08/22 18:31 Glucose 102 mg/dl (70-99(Fasting)) H 07/08/22 18:31 POC Glucose 121 mg/dl (70-99) H 07/08/22 17:39 Calcium 9.3 mg/dl (8.5-10.1) 07/08/22 18:31 Magnesium 2.3 mg/dl (1.7-2.4) 07/08/22 18:31 Total Bilirubin 0.4 mg/dl (0.2-1.0) 07/08/22 18:31 AST 17 U/L (13-39) 11/05/22 18:31 ALT 26 U/L (7-52) 07/08/22 18:31 Alkaline Phosphatase 94 U/L (34-104) 07/08/22 18:31 Troponin I High Sens 2.8 pg/ml (0-14) 07/08/22 18:31 Total Protein 6.8 gm/dl (6.0-8.3) 07/08/22 18:31 Albumin 4.3 gm/dl (3.4-5.0) 07/08/22 18:31 Globulin 2.5 gm/dl (2.5-4.0) 07/08/22 18:31 Albumin/Globulin Ratio 1.7 (0.9-2) 07/08/22 18:31 SARS-CoV-2, RNA, NAAT NEGATIVE (NEGATIVE) 07/08/22 20:48 Impressions Chest X-Ray 07/08/22 17:47 XR chest 1V portable CLINICAL HISTORY: ? tia TECHNIQUE: Single frontal radiograph of the chest was obtained. Comparison: Comparison is made to chest and abdomen radiographs 07/15/2014 FINDINGS: No lines and tubes are seen. The cardiomediastinal silhouette is normal. The lungs are clear. No evidence of pleural effusion or pneumothorax. IMPRESSION: No acute chest disease. ACT 112: Negative or not required by law. Electronically signed by: Bon Osman M.D. 07/08/2022 6:[address] 07/08/22 17:47 CT angio neck with con, CT head/brain wo con, CT angio head w con CLINICAL HISTORY: Stroke Like Symptoms TECHNIQUE: Contiguous axial CT images of the head were acquired from the base of the skull to the vertex without intravenous contrast administration. CT angiography of the head and neck was performed following intravenous administration of iodinated contrast. Coronal and sagittal MIPS were obtained from the axial data set and were submitted for review. Automated dose lowering techniques and/or adjustment according to patient size were utilized for this examination. All measurements were calculated based on NASCET criteria. CT DOSE: 1056.71 mGy.cm Comparison: Comparison is made to MRI brain 08/24/2011 FINDINGS: CT head: There is no acute intracranial hemorrhage or evidence of acute territorial infarction. No shift of the midline structures, mass effect, or extra-axial abnormalities are shown. Lungs and soft tissues are unremarkable. CTA Neck: A 3 vessel aortic arch is shown. There is no significant atherosclerotic plaque in the aortic arch or the origins of the innominate, left common carotid, and left subclavian arteries. The common carotid, external carotid, cervical segments of the internal carotid arteries, and the cervical segments of the vertebral arteries are patent without hemodynamically significant stenosis. The left vertebral artery is dominant. CTA Head: The anterior and posterior cerebral circulations are patent. No hemodynamically significant stenosis, aneurysm, dissection, or arteriovenous malformation is shown. Atherosclerotic disease is noted. IMPRESSION: 1. No acute intracranial hemorrhage, evidence of acute territorial infarction, or other acute intracranial disease process. 2. No occlusion, hemodynamically significant stenosis, or dissection in the major cervical arteries. 3. No occlusion, hemodynamically significant stenosis, aneurysm, dissection, or arteriovenous malformation in the major intracranial arteries. Assessment of stenosis of the internal carotid arteries is based on NASCET criteria. ACT 112: Negative or not required by law. Electronically signed by: Bon Osman M.D. 07/08/2022 7:13 PM Head CTA 07/08/22 17:47 CT angio neck with con, CT head/brain wo con, CT angio head w con CLINICAL HISTORY: Stroke Like Symptoms TECHNIQUE: Contiguous axial CT images of the head were acquired from the base of the skull to the vertex without intravenous contrast administration. CT angiography of the head and neck was performed following intravenous administration of iodinated contrast. Coronal and sagittal MIPS were obtained from the axial data set and were submitted for review. Automated dose lowering techniques and/or adjustment according to patient size were utilized for this examination. All measurements were calculated based on NASCET criteria. CT DOSE: 1056.71 mGy.cm Comparison: Comparison is made to MRI brain 08/24/2011 FINDINGS: CT head: There is no acute intracranial hemorrhage or evidence of acute territorial infarction. No shift of the midline structures, mass effect, or extra-axial abnormalities are shown. Lungs and soft tissues are unremarkable. CTA Neck: A 3 vessel aortic arch is shown. There is no significant atherosclerotic plaque in the aortic arch or the origins of the innominate, left common carotid, and left subclavian arteries. The common carotid, external carotid, cervical segments of the internal carotid arteries, and the cervical segments of the vertebral arteries are patent without hemodynamically significant stenosis. The left vertebral artery is dominant. CTA Head: The anterior and posterior cerebral circulations are patent. No hemodynamically significant stenosis, aneurysm, dissection, or arteriovenous malformation is shown. Atherosclerotic disease is noted. IMPRESSION: 1. No acute intracranial hemorrhage, evidence of acute territorial infarction, or other acute intracranial disease process. 2. No occlusion, hemodynamically significant stenosis, or dissection in the major cervical arteries. 3. No occlusion, hemodynamically significant stenosis, aneurysm, dissection, or arteriovenous malformation in the major intracranial arteries. Assessment of stenosis of the internal carotid arteries is based on NASCET criteria. ACT 112: Negative or not required by law. Electronically signed by: Bon Osman M.D. 07/08/2022 7:13 PM Neck CTA 07/08/22 17:47 CT angio neck with con, CT head/brain wo con, CT angio head w con CLINICAL HISTORY: Stroke Like Symptoms TECHNIQUE: Contiguous axial CT images of the head were acquired from the base of the skull to the vertex without intravenous contrast administration. CT an giography of the head and neck was performed following intravenous administration of iodinated contrast. Coronal and sagittal MIPS were obtained from the axial data set and were submitted for review. Automated dose lowering techniques and/or adjustment according to patient size were utilized for this examination. All measurements were calculated based on NASCET criteria. CT DOSE: 1056.71 mGy.cm Comparison: Comparison is made to MRI brain 08/24/2011 FINDINGS: CT head: There is no acute intracranial hemorrhage or evidence of acute territorial infarction. No shift of the midline structures, mass effect, or extra-axial abnormalities are shown. Lungs and soft tissues are unremarkable. CTA Neck: A 3 vessel aortic arch is shown. There is no significant atherosclerotic plaque in the aortic arch or the origins of the innominate, left common carotid, and left subclavian arteries. The common carotid, external carotid, cervical segments of the internal carotid arteries, and the cervical segments of the vertebral arteries are patent without hemodynamically significant stenosis. The left vertebral artery is dominant. CTA Head: The anterior and posterior cerebral circulations are patent. No hemodynamically significant stenosis, aneurysm, dissection, or arteriovenous malformation is shown. Atherosclerotic disease is noted. IMPRESSION: 1. No acute intracranial hemorrhage, evidence of acute territorial infarction, or other acute intracranial disease process. 2. No occlusion, hemodynamically significant stenosis, or dissection in the major cervical arteries. 3. No occlusion, hemodynamically significant stenosis, aneurysm, dissection, or arteriovenous malformation in the major intracranial arteries. Assessment of stenosis of the internal carotid arteries is based on NASCET criteria. ACT 112: Negative or not required by law. Electronically signed by: Bon Osman M.D. 07/08/2022 7:13 PM PG Care Time/CCT Total # of Minutes Spent Total Time Spent with Patient: Total time spent is greater than 50% in coordination of care (as documented) at patient's floor/unit and/or counseling patient: Coding Level of Care Code INT OBSERVATION CARE 50M LVL 2 Diagnoses Dysarthria R47.1 Multiple sclerosis G35 Diabetes type 1, controlled E10.9 Hypertension I10 Hypothyroidism E03.9
[2022-07-08] MEDS ORDERED: ACETAMINOPHEN 325 MG TAB PO PRN (23:49)
[2022-07-08] MEDS ORDERED: ONDANSETRON INJ 2 MG/ML 2 ML VIAL IV PRN (23:49)
[2022-07-09] MEDS ORDERED: DEXTROSE 50% 50 ML SYRINGE IV PRN (00:15)
[2022-07-09] MEDS ORDERED: INSULIN ASPART 100 UNITS/ML VIAL SC PRN (00:15)
[2022-07-09] MEDS ORDERED: GLUCAGON FOR INJ 1 MG VIAL IM PRN (00:15)
[2022-07-09] MEDS ORDERED: GLUCOSE 10 TAB/TUBE PO PRN (00:15)
[2022-07-09] MEDS ORDERED: CARBOHYDRATES FOR HYPOGLYCEMIA PO PRN (00:15)
[2022-07-09] MEDS ORDERED: GLUCOSE 40% GEL 15 GM TUBE PO PRN (00:15)
[2022-07-09] MEDS ORDERED: INSULIN, Rapid-Acting PUMP ONE (00:45)
[2022-07-09] MEDS ORDERED: ARMOUR THYROID 30 MG TAB PO SCH ×2 (06:30→09:00)
[2022-07-09] MEDS ORDERED: ASPIRIN 81 MG ECTAB PO SCH (09:00)
[2022-07-09] MEDS ORDERED: CLOPIDOGREL BISULFATE 75 MG TAB PO SCH (09:00)
[2022-07-09] MEDS ORDERED: INSULIN ASPART PER UNIT SQ SCH (09:00)
[2022-07-09 09:04] LABS: Basophils # (auto) 0.01 K/uL (0-0.2); Basophils % (auto) 0.3 %; Eosinophils # (auto) 0.02 K/uL (0-0.50); Eosinophils % (auto) 0.7 %; Hematocrit (blood only) 40.5 % (34.1-44.9); Hemoglobin 13.3 g/dl (12.0-16.0); Lymphocytes # (auto) 0.31 K/uL (1.2-3.4); Lymphocytes % (auto) 10.3 %; Mean Corpuscular Hemoglobin 30.2 pg (25.0-34.0); Mean Corpuscular Hgb Conc 32.8 g/dL (32.0-36.0); Mean Platelet Volume 10.1 fL (9.4-12.3); Monocytes % (auto) 13.2 %; Neutrophils # (auto) 2.28 K/uL (1.4-6.5); Neutrophils % (auto) 75.5 %; Platelet Count 250 K/uL (130-400); RDW Coefficient of Variation 13.8 % (11.5-14.5); RDW Standard Deviation 47.2 fL (36.4-46.3); White Blood Count 3.02 K/ul (4.8-10.8)
[2022-07-09] MEDS: INSULIN, Rapid-Acting PUMP SCH ×2 (09:19→12:26)
[2022-07-09 09:27] LABS: BUN Creatinine Ratio 21.5 (10-20); Calcium 9.3 mg/dl (8.5-10.1); Chol HDL Ratio 4.1 (0-5); Creatinine Clr Calc Pharmacy 92.6 ml/min; Est GFR (African American) 116.7 ml/min; Est GFR (Non-African American) 100.7 ml/min; Potassium 3.6 mmol/L (3.5-5.1)
[2022-07-09] MEDS ORDERED: GADOBUTROL 65ML VIAL IV ONE (12:58)
--- NOTE | 2022-07-09 13:03 | Hospitalist Progress Note ---
Date of Service July 09, 2022 Assessment & Plan (1) Dysarthria: Plan: 52yo female with history of relapsing/remitting MS, well controlled on fingolimod (GILENYA), Type I DM with insulin pump in place and HTN presenting with brief episode of dysarthria and visual disturbance. Symptoms have resolved. Still with dull frontal headache, otherwise no complaints. Workup thus far is unremarkable to include CT Head and CTA Head and neck Neurological exam is unremarkable Differential to include TIA/CVA, complex migraine, less likely secondary to flare of MS -Observation to medical with telemetry -Check MRI brain -Check 2D echo -Check Lipid panel -Lasat GtyD6A=2.9 on 06/14/22 -ASA 81mg po daily and Plavix 75mg daily for now -Patient has be recommended a statin by Endocrine - preferred to hold off at that time. Should be started on statin on discharge given current episode (2) Multiple sclerosis: Plan: Relapsing/remitting - overall very well controlled on GILENYA. Patient follows with Neurology. Has not had acute flare for years - they are considering taking her of DMARD medications. Doubt that tonight's event was secondary to MS. Symptoms have now resolved -Continue Fingolimod. Patient's daughter is bringing in her medication (3) Diabetes type 1, controlled: Plan: Overall well controlled with insulin pump in place. Last [id number]=4.9 on 06/14/22. Patient has no difficulty with her insulin pump -Continue insulin pump -Patient may manage her own (4) Hypertension: Plan: Chronic. Mildly elevated at present at 145/73 -Continue Lisinopril 10mg po daily (5) Hypothyroidism: Plan: Chronic. TSH is low at 0.34. Patient follows with Endocrinology - last seen 06/14/22 -Continue pork thyroid 75mcg daily Admission and Anticipated Discharge Date Admission Date: July 08, 2022 Results & Data Results & Data ([facility]) Vital Signs (Past 12 Hours) Vital Signs Temp Pulse Pulse Resp BP Pulse Ox O2 Del Method 07/09/22 11:05 36.8 C 79 18 144/74 H 97 Room Air 07/09/22 07:51 36.7 C 76 18 146/86 H 99 Room Air 07/09/22 07:25 81 07/09/22 03:35 36.9 C 78 18 130/75 98 Room Air Resident Activity Tracking Resident Involvement: Resident Care Provided Care Provided: Adult Hospital Medicine
--- NOTE | 2022-07-09 13:34 | Magnetic Resonance Report ---
MRI OF THE BRAIN WITHOUT AND WITH IV CONTRAST CLINICAL HISTORY: ?TIA/CVA. Difficulty speaking. Visual disturbance. History of MS. COMPARISON STUDY: MRI of the brain August 24, [address] and CTA of the head July 08 2. TECHNIQUE: Utilizing a 1.5 Ritika magnet and dedicated coil, multiplanar, multiecho imaging of the br ain was performed pre and postcontrast administration. IV administration of 6.3 mL of Gadavist contr ast was uneventful. FINDINGS: There are no foci of restricted diffusion to suggest acute infarct. No acute intracranial h emorrhage, midline shift or mass effect is present. Ventricular system is normal. Basal cisterns are patent. There are no extra-axial collections. Flow-voids for the major intracranial vessels are prese nt. There is no intracranial mass or pathologic enhancement. Numerous white matter T2 hyperintense fo ci are noted, predominantly within the periventricular distribution. The majority of these are unchan ged since MRI of August 24, 2011. A few have decreased in conspicuity. A 8 mm subcortical T2 hyperi ntense focus within the posterior left frontal lobe on axial image 17 of is new since previous exa m. This does not enhance. A few T2 hyperintense foci within the posterior fossa are also noted, inclu ding foci within the brainstem. These do not enhance. The majority of these were present on previous MRI. Calvarial signal is normal. Numerous foci of cervical cord signal abnormality are noted on the s agittal thin cut sequence. These are suboptimally assessed on this exam but multifocal cord signal ab normality was shown on previous MRI of June 26, 2007. IMPRESSION: 1. No acute intracranial findings. No evidence for acute infarct. 2. No intracranial mass. 3. Numerous white matter T2 hyperintense foci, the majority of which are unchanged since MRI of Decem 2010. These are consistent with multiple sclerosis and represent previous sites of demyelinat ion. An 8 mm cortical T2 hypertense focus within the posterior left frontal lobe is new since previou s MRI but does not enhance and is therefore likely not acute. No enhancement to suggest active demyel ination. Multifocal cervical cord signal abnormality also consistent with demyelination, suboptimally assessed on this exam. Visualized plaques do not enhance. ACT 112: Negative or not required by law. Electronically signed by: Julian Pardo M.D. 07/09/2022 1:32 PM
--- NOTE | 2022-07-09 13:42 | Discharge Summary ---
Date of Service July 09, 2022 Admission HPI Per Admitting Provider Liliana Olmos is a 52yo female with Type I DM, HTN and HLP as well as relapsing/remitting MS well controlled presenting with acute episode of headache and speech disturbance. Patient was sitting in front of a computer with her yshdyh-yk-yzm looking for vacation rentals around 16:00 when she had an acute episode of garbled speech. She saw a visual deficit in her right eye - she describes as a "pixilated shape" that moved across her field of vision. She then developed sharp pain in her head between her eyes. She got up to go to the bathroom and was able to walk without difficulty. She then spoke with her daughter and her speech was clear. She continues to have a dull frontal headache. Denies facial droop, focal numbness/weakness, imbalance or falls. She has no nausea, vomiting, fever, chills, neck pain. She does not get headaches routinely. Denies photophobia/phonophobia No additional complaints at this time Patient did say that she has seen the "pixilated shape" before. She spoke with her Linseed Cake Trimmer about it and was told that it was from eye fatigue and strain. Code Stroke was called by the ER upon patient's arrival. She is afebrile, mildly hypertensive otherwise stable. NAD ER Course: Imaging performed to include CT Head and CTA Head and Neck that were NEGATIVE for acute process ASA 324mg Admission Exam Per Admitting Provider General: patient resting comfortably, NAD, non-toxic in appearance, AA&O x 4 Skin: warm, dry, intact, no rashes or lesions HEENT: NC/AT, PERRL, EOMI, anicteric sclera, conjunctiva without injection, external ear normal to inspection and nontender, nares patent, moist mucus membranes, dentition intact, no oropharyngeal lesions, neck supple, trachea midline, no LAD, no thyromegaly, no JVD Heart: +S1/S2, regular, no m/r/g Lungs: equal air entry bilaterally, no rales/rhonchi/wheezes Abd: +BS, soft, NT/ND, no masses/organomegaly/ascites Ext: warm, 2+ pulses in UE/LE bilaterally, no clubbing/cyanosis or edema Neuro: nonfocal, patient AA&O x 4, speech intact, no facial droop, moving all extremities on command with equal strength 5/5, CN II - XII intact, sensation to light touch intact Principal Diagnosis General: patient resting comfortably, NAD, non-toxic in appearance, AA&O x 4 Skin: warm, dry, intact, no rashes or lesions HEENT: NC/AT, PERRL, EOMI, anicteric sclera, conjunctiva without injection, external ear normal to inspection and nontender, nares patent, moist mucus membranes, dentition intact, no oropharyngeal lesions, neck supple, trachea midline, no LAD, no thyromegaly, no JVD Heart: +S1/S2, regular, no m/r/g Lungs: equal air entry bilaterally, no rales/rhonchi/wheezes Abd: +BS, soft, NT/ND, no masses/organomegaly/ascites Ext: warm, 2+ pulses in UE/LE bilaterally, no clubbing/cyanosis or edema Neuro: nonfocal, patient AA&O x 4, speech intact, no facial droop, moving all extremities on command with equal strength 5/5, CN II - XII intact, sensation to light touch intact Discharge Exam General: resting comfortably, no acute distress HEENT: PERRLA, EOMI, anicteric sclerae, moist mucous membranes, neck supple, no sinus tenderness CV: RRR, normal S1 and S2, no murmurs appreciated Resp:CTAB, unlabored respirations Ext: 2+ pulses in UE/LE bilaterally, no clubbing/cyanosis or peripheral edema Neuro: AOx3, speech intact and clear, no facial droop or pronator drift, 5/5 strength of b/l UE and LE, intact sensorium, CN 2-12 intact, no bvrwmj-kkum-vkezgm or heel-wyatt dysmetria, no dysdiadochokinesia, gait not assessed Skin: no rashes, warm and dry Discharge Data Allergies Allergy/AdvReac Type Severity Reaction Status Date / Time glatiramer (copolymer 1) Allergy Severe BODY Verified 07/08/22 20:36 SPASMS TO A POS DIAPHORESIS HEARTRACING FLUSHING Consultations 07/08/22 20:20 ED Decision to Admit Stat Ordered Studies 07/08/22 17:47 CT angio head w con Stat CT angio neck with con Stat CT head/brain wo con Stat 07/09/22 08:57 MR brain wo/w con Routine Hospital Course (1) Dysarthria: 52yo female with history of relapsing/remitting MS, well controlled on fingolimod (GILENYA), Type I DM with insulin pump in place and HTN presenting with brief episode of dysarthria and visual disturbance -Head CT and head/neck CTA unremarkable, benign neurological exam on admission -Last A1C 5.9% in 06/2022 -Lipid panel with total cholesterol 179, LDL 120, HDL 44- pt was recommended statin at last endocrinology/diabetes visit, she preferred to trial lifestyle modification first before initiating use -ASCVD 10 year risk of 6.5%, borderline- recommend initiation of moderate intensity statin therapy per guidelines -Echocardiogram unremarkable -Brain MRI without acute process, unchanged from 08/2011 8 mm cortical T2 hypertense focus within posterior left frontal lobe is new, does not enhance and is therefore likely not acute. -Suspect symptoms were likely due to complex migraine as her headache persisted after resolution of dysarthria and visual field disturbance- less likely to be TIA -Benign neurological exam on discharge -Recommended pt discuss aspirin and statin therapy with PCP at f/u and also outpatient neurology f/u (2) Multiple sclerosis: Relapsing/remitting - overall very well controlled on GILENYA. Patient follows with Neurology. Has not had acute flare for years - they are considering taking her of DMARD medications. Symptoms have now resolved -Last MRI in 01/2022 showed stable demyelinating plaques without acute worsening compared to previous MRI (3) Diabetes type 1, controlled: Overall well controlled with insulin pump in place. Last BvqI1D=7.9 on 06/14/22. Patient has no difficulty with her insulin pump -BSGs normal during stay (4) Hypertension: Chronic. Mildly elevated at present at 145/73 -Continued lisinopril 10 mg -Pt's BP normally 110s-120s/70s at home (5) Hypothyroidism: Chronic. TSH is low at 0.34. Patient follows with Endocrinology - last seen 06/14/22 -Continued pork thyroid 75mcg daily Total Time Total Time Spent Total Time Spent (In Minutes): 30 Discharge Plan Discharge Items Patient Disposition: Home - Self-Care Reason For Visit: ?TIA/CVA Discharge Diagnosis: Complex migraine Activity: Resume your previous activity Non-emergency contact: Primary Care Provider and Neurologist Call non-emergency contact if: you have any medication questions, your symptoms worsen and your pain is worsening Follow-up/Referrals: Louis Johnson MD [Physician] - Milana Britton MD [Primary Care Provider] - 07/20/22 4:00 pm Diet: Carb Count or DM1 Addtl Attending Provider Instructions: You were admitted to the hospital for speech/vision disturbance along with headache. All the workup including brain imaging (CT and MRI) and heart echocardiogram was normal, which suggests you did not have an acute stroke. A mini stroke could present like this, but what's more likely is something known as a complex migraine since your headache persisted after the speech/vision disturbance cleared. This is something to follow up on with neurology, as migraine disorder can be treated both acutely and through prevention. Your calculated score for atherosclerotic disease over the next 10 years, such as heart attacks and strokes, based on your cholesterol levels, diabetes history, gender, age and blood pressure is 6.5%. This puts you in the borderline risk category. Guidelines by the [place] [employer] as well as [place] [employer] suggest starting statin therapy. This is something you should discuss with your outpatient providers at your next visit, including Dr. Britton, Dr. Bueno and Daisy Almendarez. Statin therapy will help reduce the risk of heart attack and stroke in the future. A discharge summary will be sent to your primary care physician and neurologist to ensure continuity of care. Please bring this discharge summary with you to your next office appointment so that your provider can review it at that time. Follow-up appointments: Make a follow-up appointment with your PCP within the next week. It is very important that you follow up with them shortly after discharge from the hospital. We also recommend a follow-up with Dr. Johnson for neurology. -We also recommend seeing the deblocker for an appointment to help manage your elevated cholesterol. Please call [phone] to schedule an appointment with Emmanuel Medley RN. Medications: Your medication list has been reviewed and reconciled upon discharge to ensure accuracy and continuity of care. An updated list of all your medications is included with your hospital discharge paperwork. Please review this list closely, and make note of any changes. Take your medications as instructed; do not skip a dose of your medicines. Make sure all of your doctors know every medicine you are taking (including kgin-xkh-dfgbyay medicines, vitamins, and supplements). Call your primary care provider before taking any new medicines (including eoxr-grk-snsnaww medicines, vitamins, and supplements), because some of these may interact with your current medications, or may make your symptoms worse. Tell your primary care provider if you cannot afford your medications. CONTACT YOUR PRIMARY CARE PROVIDER if you experience any of the following: Weakness Numbness Speech disturbance Loss of consciousness Fall Confusion Difficulty following your treatment plan, or difficulty taking medications CALL 911 OR GO TO THE EMERGENCY DEPARTMENT if you experience any of the following: Sudden, severe abdominal pain or nausea/vomiting Severe chest pain, or chest pain that radiates (moves) to your jaw or arm Sudden, severe shortness of breath or difficulty breathing Thank you for allowing us to participate in your care. Pending Studies at Discharge: No Stand-Alone Forms: My [facility] Medications and DC Order Prescriptions: Continued (DME) lancets [Accu-Chek Fastclix Lancet Drum] Misc See Rx Instructions .ROUTE .MEDSUPPLY Qty: 510 3RF Rx Instructions: Test blood sugars 5 times day (DME) Contour Next Test Strips Strip See Dose Instructions .ROUTE .MEDSUPPLY Qty: 600 3RF Dose Instruction: As directed Rx Instructions: check blood sugar 6 x daily Novolog U-100 Insulin aspart 100 unit/mL solution 40 unit continuous subcutaneous infusion DAILY 90 Days Qty: 36 3RF lisinopril 10 mg tablet 10 mg PO DAILY Qty: 90 3RF fingolimod 0.5 mg capsule 0.5 mg PO DAILY thyroid (pork) 15 mg tablet 15 mg PO DAILY Qty: 90 3RF Rx Instructions: Take with 60 mg for total of 75 mg levonorgestrel 20 mcg/24 hours (5 yrs) 52 mg intrauterine device 20 mcg IU CONTINOUS cholecalciferol (vitamin D3) 2,000 unit tablet 2,000 units PO DAILY Qty: 30 thyroid (pork) 60 mg tablet 60 mg PO DAILY Rx Instructions: take with 15mg = 75mg daily Discharge Orders: Discharge Order (Routine); Ordered 07/09/22 Ordered By: rAchana Bush Admission Data Admit Date/Time: 07/08/22 20:47 Attending Provider: Dominga Nobles Admit Provider: Marialuisa Ambrosio Primary Care Provider: Milana Britton Other Providers: Marialuisa Ambrosio Other Interventions: Discharge Summary Assessment (RN) Last Done: 07/09/22 13:40 Supervising Physician Co-Signing Physician Notes Patient seen and examined independently of PGY-2 Dr. Bush. Agree with history, exam findings, assessment and plan of care as outlined. In brief, Liliana is a 52 year old female with history of MS (followed by [facility] Dr. Johnson) and Type 1 DM (followed by ALEXANDRA Rogers) admitted with brief episode of visual disturbance, dysarthria and headache. Symptoms started together this afternoon, but visual disturbance and dysarthria resolved by the time she got to the hospital. However, had some pain between the eyes. This is still present, but improved compared to before. She has no history of migraines or other types of headaches. Does occasionally get motion sick in the car. Sometimes will have ice cream headaches. Really no strong family hx of migraines--oldest daughter has migraines, but no one else in the family with migraines. MRI brain done today without signs of ischemia. TTE unremarkable. Discussed with Liliana and her that this was likely a complex migraine headache. Discussed that TIAs typically do not cause headaches. That being said, with diabetes, would consider a statin to get LDL < 100. Endocrinology office does have a extractor operator helper. If she would like to see Ese Medley, that is also an option within the [facility]. Other medical issues were stable and home medications were continued. Follow up with PCP in 1-2 weeks. Follow up with neurology within a month. I personally spent 25 minutes discharge planning for this patient today. Resident Activity Tracking Resident Involvement: Resident Care Provided Care Provided: Adult Hospital Medicine
--- NOTE | 2022-07-09 13:52 | Electrocardiogram Report ---
Test Reason : Blood Pressure : / mmHG Vent. Rate : 083 BPM Atrial Rate : 083 BPM P-R Int : 172 ms QRS Dur : 076 ms QT Int : 368 ms P-R-T Axes : 060 043 047 degrees QTc Int : 432 ms Poor data quality, interpretation may be adversely affected Normal sinus rhythm Possible Left atrial enlargement Nonspecific ST and T wave abnormality Abnormal ECG When compared with ECG of 23-NOV-2016 14:44, Nonspecific ST and T wave abnormality is now present Confirmed by Javy Singh ([id number]) on 07/09/2022 1:51:44 PM Referred By: REFERRED SELF Confirmed By:Javy Singh
== END 2022-07-09 14:57 | disposition home or self-care (01) ==
LOC: ED 17:18 → 2W 17:18 → SUATTDRO 20:47 → 2W 22:48